=== PATIENT | male | born 1950 | race Caucasian/White ===

== ENCOUNTER 2019-01-26 17:10 | Emergency (ER) | payer MEDICARE, OTHER, SELFPAY ==
[2019-01-26 17:11] VITALS: BP 125/82; PULSE 73; RESP 16; TEMP 36.6; O2SAT 95; BMI 27.8
--- NOTE | 2019-01-26 17:31 | NURSING ---
DR ELSIE LARSEN FOR DR JONES
--- NOTE | 2019-01-26 17:39 | ED.VISSUMM ---
- ER Visit Summary Date of Service: 01/26/19 Chief Complaint: Right eye visual change History of Present Illness: The patient is a 68 M history of CAD, [place], COPD, hypertension. As needed wears reading glasses. No contacts and no prior eye surgery. States that he woke up this morning he thought his right eye was somewhat blurry. He states he is seeing floaters. Says he thinks is getting worse. He denies any headache. No head trauma. He says he sees little circles of black dots. At times he goes across his visual field. But then resolves. He denies any pain. No prior history. No prior eye surgery. Physical Examination: Well-appearing older male. Vital signs are stable afebrile. Initial blood pressure 125/82 his visual acuity is 20/40 right eye the affected eye 20/30 left eye 5 bilaterally. HEENT exam unremarkable. Pupils round reactive light about 1-2 mm bilaterally. Extra motions are intact no nerve palsy. He is able to open and close both eyes easily. Lids are unremarkable. Neck nontender. No lymphadenopathy. Lungs clear to auscultation bilaterally. Heart regular rhythm no murmur. Abdomen soft and nontender. Remedies moves all 4. Neurovascular intact. Neurologically is awake alert.. No focal motor or sensory deficits. Normal speech. No facial droop. 5 out of 5 motor strength both hands. Dorsi plantar flexion intact. Anger tip to nose within normal limits. Normal rapid hand movements. NIH score is 0. Test Results: None Emergency Department Course and Treatment: Discussed with the zoo veterinarian on-call Dr. Marcelo Laura. Both he and I are comfortable patient following up with his office first thing in the morning. I will discuss this with the patient. Treatment Plan: Follow-up with ophthalmology tomorrow. Return if any other symptoms. Develop. Disposition: Discharge Impression: Acute right eye visual change of uncertain etiology This note was generated with [employer] dictation software. It may contain incorrect words, spelling, and punctuation that were not noted in review of the chart prior to signing ED Disposition - Plan for ED Patient: [facility] [Primary Care Provider] -
--- NOTE | 2019-01-26 17:42 | ED.DCSUM_ITS ---
- ER Visit Summary Date of Service: 01/26/19 Chief Complaint: Right eye visual change History of Present Illness: The patient is a 68 M history of CAD, [place], COPD, hypertension. As needed wears reading glasses. No contacts and no prior eye surgery. States that he woke up this morning he thought his right eye was somewhat blurry. He states he is seeing floaters. Says he thinks is getting worse. He denies any headache. No head trauma. He says he sees little circles of black dots. At times he goes across his visual field. But then resolves. He denies any pain. No prior history. No prior eye surgery. Physical Examination: Well-appearing older male. Vital signs are stable afebrile. Initial blood pressure 125/82 his visual acuity is 20/40 right eye the affected eye 20/30 left eye 5 bilaterally. HEENT exam unremarkable. Pupils round reactive light about 1-2 mm bilaterally. Extra motions are intact no nerve palsy. He is able to open and close both eyes easily. Lids are unremarkable. Neck nontender. No lymphadenopathy. Lungs clear to auscultation bilaterally. Heart regular rhythm no murmur. Abdomen soft and nontender. Remedies moves all 4. Neurovascular intact. Neurologically is awake alert.. No focal motor or sensory deficits. Normal speech. No facial droop. 5 out of 5 motor strength both hands. Dorsi plantar flexion intact. Anger tip to nose within normal limits. Normal rapid hand movements. NIH score is 0. Test Results: None Emergency Department Course and Treatment: Discussed with the irrigationist on-call Dr. Mareclo Laura. Both he and I are comfortable patient following up with his office first thing in the morning. I will discuss this with the patient. Treatment Plan: Follow-up with ophthalmology tomorrow. Return if any other sym ptoms. Develop. Disposition: Discharge Impression: Acute right eye visual change of uncertain etiology This note was generated with [employer] dictation software. It may contain incorrect words, spelling, and punctuation that were not noted in review of the chart prior to signing ED Disposition - Plan for ED Patient: [facility] [Primary Care Provider] -
--- NOTE | 2019-01-26 17:44 | DCINST.ED_ITS ---
ED Disposition - Plan for ED Patient: Disposition: Home or Assisted Living Referrals: Marcelo Laura MD [STAFF PHYSICIAN] - 1 Day Additional Instructions: I spoke with the masonry instructor on-call Dr. Martin Laura. He will see you tomorrow in their office at [facility] on [facility] at 8 AM tomorrow morning. He said if you cannot make it then call first thing in the morning and they will get you into be seen tomorrow. Return to the ER if you develop trouble talking, severe headache or trouble moving her arms or legs.
== END 2019-01-26 18:17 | disposition home or self-care (01) ==
LOC: ED 18:11
PROVIDERS: Emergency Provider Emergency Medicine
DX: H53.8 Other visual disturbances (principal); I25.10 Atherosclerotic heart disease of native coronary artery without angina pectoris; I25.2 Old myocardial infarction; I10 Essential (primary) hypertension; J44.9 Chronic obstructive pulmonary disease, unspecified; Z95.5 Presence of coronary angioplasty implant and graft; Z79.82 Long term (current) use of aspirin; Z79.899 Other long term (current) drug therapy
CPT/HCPCS: 99282

== ENCOUNTER → 2023-07-06 | Outpatient (CLI) | payer OTHER, SELFPAY ==
--- NOTE | 2023-07-06 09:35 | RAD_ITS ---
STUDY: X-RAY - ESOPHAGUS (BARIUM SWALLOW) WITH FLUOROSCOPY REASON FOR EXAM: Male, 72 years old. DYSPHAGIA TECHNIQUE: 25 view(s) of the esophagus were obtained following swallowing of barium. FLUOROSCOPY TIME (if supplied): (54 seconds) minutes/seconds. 15.06 mGy COMPARISON: None. FINDINGS: There is no demonstrated esophageal foreign body. There is no demonstrated stricture or mucosal abnormality. Normal gastroesophageal junction, without a demonstrated hiatal hernia. The patient ingested a 12 mm tablet of barium. The tablet stopped at the gastroesophageal junction. There is atherosclerotic calcification of the aortic arch with tortuosity of the descending aorta. Normal visualized pulmonary parenchyma. There are diffuse degenerative changes of the visualized thoracic spine. RAD/Esophagus Dual Contrast IMPRESSION: The 12 mm tablet of barium is trapped at the gastroesophageal junction. Electronically Signed: Darrin Daniels MD at 13:48 EDT ,
== END | disposition home or self-care (01) ==
LOC: RAD 08:57
PROVIDERS: Referring Provider Internal Medicine Gastroenterology; Visit Provider Internal Medicine Gastroenterology
DX: R13.10 Dysphagia, unspecified (principal)
CPT/HCPCS: 74221

== ENCOUNTER 2024-09-17 17:25 | Emergency (ER) | payer OTHER, SELFPAY ==
[2024-09-17 17:27] VITALS: BP 161/72; PULSE 58; RESP 18; TEMP 36; O2SAT 96; BMI 28.0
--- NOTE | 2024-09-17 17:51 | EX.ED.DYSGE1 ---
HPI History of Present Illness Chief Complaint: Rash Informant: patient Narrative Narrative: Patient is a 73-year-old male with history of terminal cancer that patient cannot pronounce he does not know which type but states that he is on Keytruda. He is presenting with rash. He states it is itchy. Been present for about a week. He follows with the [facility]. He was told that he has to go to the emergency room because of this rash. He states he noticed on his legs about a week ago. Does seem to be more prominent throughout all of his legs now. He states he otherwise feels well and at his baseline. He denies any associated nausea and vomiting, change in his bowel habits, sores in his mouth, pain with urination or defecation, fever or other urinary symptoms. Denies any blisters. States that he always feels little short of breath and has no change in this. No other complaints or concerns reported at this time. Does state that the [facility] has given him an appointment for this as well was not recall the name of it. [facility] Home Medications ?Medication ?Instructions ?Recorded ?Last Taken ?Type aspirin 81 mg tablet,delayed 81 mg PO DAILY@0800 06/27/17 Unknown History release atorvastatin 80 mg tablet 80 mg PO QHS 06/27/17 Unknown History metoprolol tartrate 25 mg tablet 12.5 mg PO BID 06/27/17 Unknown History ondansetron 4 mg disintegrating 4 mg PO TID PRN Nausea ##10 11/01/17 Unknown Rx tablet (Zofran ODT) sumatriptan succinate 100 mg 100 mg PO .X1 PRN 11/01/17 Unknown History tablet (Imitrex) sumatriptan succinate 4 mg/0.5 mL 4 mg (0.5 mL) SQ .X1 PRN PRN 11/01/17 Unknown Rx subcutaneous pen injector (Imitrex Headache #6 mL STATdose Pen) Allergy/AdvReac Type Severity Reaction Status Date / Time No Known Allergies Allergy Verified 09/17/24 17:27 Social History Smoking Status: Former smoker ROS ROS ED Constitutional Constitutional ED: Denies chills or fever(s) ENT ENT ED: Denies rhinorrhea or sore throat Cardiovascular Cardiovascular: Denies chest pain Respiratory/Chest Respiratory/Chest: Reports dyspnea Gastrointestinal Gastrointestinal: Denies abdominal pain, melena, nausea or vomiting Genitourinary Genitourinary ED: Denies dysuria Musculoskeletal Musculoskeletal: Denies arthralgias or myalgias Integumentary Reports rash Neurologic Neurologic: Denies headache(s), paresthesias or weakness Hematologic/Lymphatic Hematologic/Lymphatic: Denies easy bleeding or easy bruising EXAM Physical Exam Const Vital Signs: 09/17/24 17:27 Temperature 96.8 F L Temperature Source Temporal Pulse Rate 58 L Respiratory Rate 18 Blood Pressure 161/72 H Blood Pressure Mean 101 Pulse Ox 96 Oxygen Delivery Method Room Air Positive well nourished and well developed General Appearance ED: well developed and NAD HEENT Reports moist mucous membranes Neck supple Chest Wall inspection of chest normal Resp normal respiratory effort Cardio regular rate and regular rhythm GI normal to inspection, nondistended, normoactive bowel sounds and non-tender Extremity normal to inspection General Extremety ED: Negative for edema or tenderness General Extremity: Negative for edema Neuro oriented x3 Sensorium / Orientation: alert Motor Exam: Negative for general weakness Psych mental status grossly normal Skin Skin Narrative: Faint scattered flat circumferential erythematous lesions with some central clearing on the lower extremities and abdomen. Negative Nikolsky sign. No bulla present. MDM MDM MDM Narrative Medical decision making narrative: Patient evaluated for rash. Patient is on Keytruda for what turned out to be metastatic non-small cell lung cancer. He is not entirely sure why he was told to come to the emergency room but states the nurse on-call line for his oncologist said that he should come in. States he had a list of symptoms to watch out for and to call if he had them. He notes he has a follow-up MRI appointment tomorrow. Patient does have a mild diffuse rash but is not consistent with Tompkins-Lane syndrome, TENS or bullous pemphigoid. Not have any mucosal involvement. He overall is quite well-appearing. Baseline lab work obtained which shows a normal platelet count and normal coags. He has a mild elevation of creatinine 1.58 and I am not sure if this is his baseline or not. No recent lab work available for comparison. CRP mildly elevated 6.18 which is nonspecific. Multiple attempts made to get a hold of someone from oncology at the [facility] for further guidance since they recommend he come to the emergency room. Unfortunately apparently after 4:30 PM there is no doctor on-call for hematology oncology in the [facility] system. Given that patient is overall well-appearing and does not appear to have any acute medical emergency will be discharged home. Will follow-up tomorrow at the [facility]. Skin return precautions. Has medication to take for the itching. Discharged home in stable condition peer Lab Data Attestation: I reviewed the patient's lab results. Labs: Laboratory Results - last 24 hr 09/17/24 17:55 WBC 6.3 RBC 4.00 L Hgb 13.0 Hct 38.8 L MCV 97.0 H MCH 32.5 H MCHC 33.5 RDW Std Deviation 50.4 H RDW Coeff of Katina 14.0 Plt Count 231 MPV 10.0 Immature Gran % (Auto) 0.500 Neut % (Auto) 46.3 L Lymph % (Auto) 34.9 [place] % (Auto) 14.7 H Eos % (Auto) 3.0 Baso % (Auto) 0.6 Absolute Neuts (auto) 2.9 Absolute Lymphs (auto) 2.19 Nucleated RBC % 0 PT 14.2 INR 1.1 APTT 26.6 Sodium 143 Potassium 4.0 Chloride 114 H Carbon Dioxide 25.0 Anion Gap 4 L BUN 17 Creatinine 1.58 H Estim Creat Clear Calc 44.61 Est GFR (MDRD) Af Amer 55 L Est GFR (MDRD) Non-Af 46 L BUN/Creatinine Ratio 10.8 Glucose 71 L Calcium 9.2 Total Bilirubin 0.60 AST 13 L ALT 16 Alkaline Phosphatase 100 C-React Prot Ext Range 6.18 H Total Protein 6.4 Albumin 3.2 Globulin 3.2 Albumin/Globulin Ratio 1.0 Discharge Plan Triage Chief Complaint: Rash ED Provider: Belle Hicks Dx/Rx/DC Orders Clinical Impression: Pruritic erythematous rash Instructions: ED Erythema Prescriptions: No Action atorvastatin 80 MG tablet 80 mg PO QHS aspirin 81 MG tablet 81 mg PO DAILY@0800 metoprolol tartrate 25 MG tablet 12.5 mg PO BID sumatriptan succinate [Imitrex] 100 MG tablet 100 mg PO .X1 PRN ondansetron [Zofran ODT] 4 MG tablet,disintegrating 4 mg PO TID PRN (Reason: Nausea) Qty: 10 0RF sumatriptan succinate [Imitrex STATdose Pen] 4 MG/0.5 ML pen injector 4 mg SQ .X1 PRN PRN (Reason: Headache) Qty: 6 0RF Primary Care Provider: [facility] Referrals[facility] [Primary Care Provider] - Activity Restrictions/Additional Instructions: Please follow-up with the [facility] doctor tomorrow for further recommendations. You do have a mildly pruritic rash but is not consistent with Tompkins-Lane syndrome, TENS or more severe side effects from Keytruda. Your kidney levels were mildly elevated with a creatinine today of 1.58. Please make sure your doctors know of this in case that this is abnormal for you. We have difficulty breathing, fever or further concerns please return to the emergency room. Print Language: Guine[place] Disposition Disposition: Home, Self Care
[2024-09-17 18:06] LABS: Absolute Lymphocyte Count 2.19 X10^3/uL (0.83-4.51); Absolute Neutrophil Count 2.9 X10^3/uL (2.0-7.7); Basophil# 0.04 X10^3/uL; Basophil% 0.6 % (0-1); Eosinophil# 0.19 X10^3/uL; Hematocrit 38.8 % (40-54); Lymphocyte # 2.19 X10^3/ul (0.83-4.51); Lymphocyte % 34.9 % (19-41); Mean Corp Hgb Conc 33.5 g/dL (32-36); Mean Corpuscular Hgb 32.5 pg (27.0-32.0); Monocyte# 0.92 X10^3/uL; Monocyte% 14.7 % (0-10); NRBC Flagged by Analyzer 0 % (0-5); Neutrophil % 46.3 % (47-70); Platelet Count 231 K/mm3 (150-450); RBC Distribution Width SD 50.4 fl (35.1-43.9); White Blood Count 6.3 K/mm3 (4.4-11.0)
[2024-09-17 18:21] LABS: International Normalized Ratio 1.1; Partial Thromboplast Time 26.6 Seconds (24.1-36.2); Prothrombin Time (Protime)PT. 14.2 SECONDS (11.7-14.9)
[2024-09-17 18:23] LABS: AST(SGOT) 13 U/L (15-37); Alanine Aminotransfer ALT/SGPT 16 U/L (16-61); Albumin, Serum 3.2 g/dL (3.2-5.0); Alkaline Phosphatase 100 U/L (45-117); Anion Gap 4 (5-15); BUN 17 mg/dL (7-18); BUN/Creat Ratio 10.8 RATIO (10-20); CRP 6.18 mg/L (0.0-3.0); Calcium,Total 9.2 mg/dL (8.5-10.1); Chloride 114 mmol/L (98-107); Creatinine, Serum 1.58 mg/dL (0.70-1.30); EST Glomerular Filtration Rate 46 mL/min (>60); Est Glom Filt Rate - Afr Amer 55 mL/min (>60); Estimated Creatinine Clearance 44.61 ml/min; Globulin 3.2 g/dL (2.2-4.2); Glucose 71 mg/dL (74-106); Protein, Total 6.4 g/dL (6.4-8.2); Sodium Level 143 mmol/L (136-145)
== END 2024-09-17 19:57 | disposition home or self-care (01) ==
PROVIDERS: Emergency Provider Emergency Medicine; Visit Provider Emergency Medicine
DX: R21 Rash and other nonspecific skin eruption (principal); C34.90 Malignant neoplasm of unspecified part of unspecified bronchus or lung; L29.9 Pruritus, unspecified; R79.89 Other specified abnormal findings of blood chemistry; R06.02 Shortness of breath; Z79.82 Long term (current) use of aspirin; Z79.899 Other long term (current) drug therapy; Z87.891 Personal history of nicotine dependence
CPT/HCPCS: 80053; 85025; 85610; 85730; 86140; 99282; A4216